=== PATIENT | male | born 1995 | race Caucasian/White ===

== ENCOUNTER → 2016-09-16 | Outpatient (CLI) | payer OTHER ==
--- NOTE | 2016-09-16 13:06 | DIAGNOSTIC IMAGING REPORT ---
THREE-PHASE BONE SCAN AND SPECT IMAGING OF THE LUMBAR SPINE CLINICAL HISTORY: LOW BACK PAIN COMPARISON STUDY: Conventional radiographic study dated 12/16/2015, MRI dated 04/19/2016 FINDINGS: The patient was injected with 25.6 mCi of technetium 99 M MDP. The flow sequence was normal. Blood pool imaging was normal.. Three-hour delayed planar images of the lumbar spine were acquired in multiple projections. Planar activity was felt to be normal. SPECT imaging in the axial coronal and sagittal planes is normal. IMPRESSION: Normal study. Electronically signed by: Robert Leung M.D. 09/16/2016 1:04 PM Dictated Date/Time: 09/16/2016 12:32 PM
== END | disposition home or self-care (01) ==
LOC: C.NUCL 08:13
PROVIDERS: ATTEND Physical Medicine & Rehabilitation
DX: M54.5 Low back pain (principal)

== ENCOUNTER → 2016-09-23 | Day surgery (SDC) | payer OTHER ==
[2016-09-22 09:07] VITALS: Ht 188 cm; Wt 79.5 kg
[~2016-09-23] VITALS: Ht 188 cm; Wt 79.5 kg
[~2016-09-23] MED LIST: IOPAMIDOL INJ 61% 15 ML VIAL ONE; LIDOCAINE HCL 1% MPF 5 ML VIAL ONE; SODIUM CHLORIDE 0.9% INJ 10 ML VIAL ONE
[2016-09-23 14:08] VITALS: TEMP 36.4
--- NOTE | 2016-09-23 14:48 | History & Physical Bridge - [place] ---
H&P Re-Evaluation Bridge Note: I have examined the patient, reviewed the History & Physical and in the interval since the performance of the History & Physical I have noted the following changes of clinical significance: No changes noted
[2016-09-23 15:14] VITALS: BP 122/72; PULSE 74; O2SAT 95
--- NOTE | 2016-09-23 15:20 | Discharge Instructions ---
Discharge Instructions Visit Reason for Visit: Low Back Pain Discharge Discharge Diagnosis / Problem: low back pain Discharge Goals Goal(s): Decrease discomfort, Improve function Activity Recommendations Activity Limitations: resume your previous activity Anesthesia . Post Anesthesia Instructions: If you have had General Anesthesia or IV Sedation: * Do not drive today. * Resume driving when surgeon permits. * Do not make important decisions or sign legal documents today. * Call surgeon for: 1. Temperature elevations greater than 101 degrees F. 2. Uncontrollable pain. 3. Excessive bleeding. 4. Persistent nausea and vomiting. 5. Medication intolerance (nausea, vomiting or rash). * For nausea and vomiting use only clear liquids such as: tea, soda, bouillon until nausea subsides, then gradually increase diet as tolerated. * If you have any concerns or questions, call your surgeon's office. If physician is unavailable and it is an emergency, call 911 or go to the nearest emergency room. . Diet Recommendations Recommended Home Diet: resume previous diet Procedures Procedures Performed: LUMBAR EPIDURAL STEROID INJECTION Pending Studies Studies pending at discharge: no Medical Emergencies . Who to Call and When: Medical Emergencies: If at any time you feel your situation is an emergency, please call 911 immediately. . Non-Emergent Contact Non-Emergency issues call your: Specialist . . "Provider Documentation" section prepared by Mark Ramirez.
--- NOTE | 2016-09-23 16:12 | OPERATIVE REPORT ---
DATE OF OPERATION: 09/23/2016 PREOPERATIVE DIAGNOSES: Low back pain, L5-S1 disc protrusion, annular tear with axial back pain. POSTOPERATIVE DIAGNOSES: Same. INDICATIONS FOR PROCEDURE: The patient is a 20-year-old white male who is a member of the [employer] who has had a 9-month plus history of low back pain that has not responded to conservative measures. MRI revealed an annular tear with a disc protrusion at L5-S1. He denies any significant radicular complaints. They are all axial low in nature. Bone scan was negative for stress fracture or facet arthritis. He presents today for a lumbar epidural steroid injection to see if this alleviates the axial back pain related to the annular tear that is present. PHYSICAL EXAMINATION: GENERAL: Pleasant male seated comfortably. MUSCULOSKELETAL: Lumbar paraspinal muscles were palpated and noted be nontender. He had some discomfort with flexion. No problems with extension. He has normal lower extremity strength. CONSENT: Verbal and written consent was obtained from the patient. Risks and benefits were reviewed. Risks include but are not limited to epidural abscess, epidural hematoma, allergic reaction, dural puncture. The patient wishes to proceed. DESCRIPTION OF PROCEDURE: The patient was taken back to the special procedures room of the [facility] where he was maintained in a prone position. Backside was cleansed with Betadine x3 and a dry sterile dressing was applied. Fluoroscope was used to identify the L5-S1 intralaminar space and overlying skin on the right side was anesthetized with 4 mL of lidocaine 1% 25-gauge 1.5-inch needle. A 22-gauge 3.5-inch Tuohy needle was then directed down towards the intralaminar space. It was advanced under lateral fluoroscopic guidance. Loss of resistance was noted at a depth of 5 cm. Isovue-300 contrast 1 mL was injected in which demonstrated epidural uptake pattern which was confirmed with both AP and lateral views. He then underwent injection after negative aspiration of 40 mg of Depo-Medrol and 4 mL of preservative free sodium chloride. Injection was well tolerated. DISPOSITION: 1. The patient is taken out into the discharge recovery area where he will be discharged home once discharge criteria have been met. 2. Follow up in the [facility] office in 2-4 weeks. I attest to the content of the Intraoperative Record and any orders documented therein. Any exceptio ns are noted below.
== END | disposition home or self-care (01) ==
LOC: X.SURG 13:55
PROVIDERS: ATTEND Physical Medicine & Rehabilitation
DX: M51.37 Other intervertebral disc degeneration, lumbosacral region (principal)

== ENCOUNTER → 2016-09-28 | Outpatient (CLI) | payer OTHER ==
[~2016-09-28] MED LIST changes: -IOPAMIDOL INJ 61% 15 ML VIAL ONE; -LIDOCAINE HCL 1% MPF 5 ML VIAL ONE; +OPTIRAY 320 IV PRN; -SODIUM CHLORIDE 0.9% INJ 10 ML VIAL ONE
--- NOTE | 2016-09-28 13:16 | DIAGNOSTIC IMAGING REPORT ---
CHEST CT WITH CONTRAST CT DOSE: 296.10 mGy.cm HISTORY: Pleural effusion R/O ORIGIN OF PLEURAL EFFUSION TECHNIQUE: Multiaxial CT images of the chest were performed following the intravenous administration of contrast. COMPARISON: None. FINDINGS: The lungs are clear. The mediastinal vascular structures are within normal limits. No mediastinal or hilar lymphadenopathy. No pleural effusion or pneumothorax. Limited views of the upper abdomen demonstrate a normal liver and spleen. IMPRESSION: No significant abnormality identified within the chest. Electronically signed by: Wm Zheng M.D. 09/28/2016 1:15 PM Dictated Date/Time: 09/28/2016 1:12 PM
== END | disposition home or self-care (01) ==
LOC: C.CTS 12:57
PROVIDERS: ATTEND Pediatrics
DX: R93.8 Abnormal findings on diagnostic imaging of other specified body structures (principal); J90 Pleural effusion, not elsewhere classified

== ENCOUNTER → 2016-10-05 | Outpatient (CLI) | payer OTHER ==
[2016-10-09 21:33] LABS: CYTOMEGALOVIRUS IGG AB 2.45; EPSTEIN BARR VIR CAPSID IGG 2.25 INDEX; PARVOVIRUS IgG INDEX 4.5 (<0.9); PARVOVIRUS IgM INDEX 0.1 (<0.9)
== END | disposition home or self-care (01) ==
LOC: C.LAB1850 14:49
PROVIDERS: ATTEND Internal Medicine Infectious Disease
DX: R59.1 Generalized enlarged lymph nodes (principal)

== ENCOUNTER → 2016-10-26 | Outpatient (CLI) | payer OTHER ==
--- NOTE | 2016-10-26 11:19 | DIAGNOSTIC IMAGING REPORT ---
Ultrasound right arm EXTREMITY NONVASCULAR LIMITED CLINICAL HISTORY: UPPER RT ARM MASS/LEFT FOREARM, ABD NORMAL LYMPH.. Mass TECHNIQUE: Real-time ultrasound COMPARISON STUDY: None FINDINGS: At the site of clinically palpable nodularity of the upper medial right arm, several isoechoic nodular densities are present. These is suggestive of potential lipomas. Largest measures up to 3 cm maximum dimension. 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 Electronically signed by: Wm Zheng M.D. 10/26/2016 11:18 AM Dictated Date/Time: 10/26/2016 11:17 AM
--- NOTE | 2016-10-26 11:21 | DIAGNOSTIC IMAGING REPORT ---
LEFT FOREARM ULTRASOUND CLINICAL HISTORY: Left forearm mass. COMPARISON STUDY: None FINDINGS: Within the distal medial forearm, there is an ovoid subcutaneous nodule, isoechoic to cutaneous tissue, measuring 10 x 2.6 x 10 mm. There is a second equivocal nodule isoechoic to subcutaneous fat measuring 13 x 4 x 15 mm. IMPRESSION: Low suspicion nonspecific subcutaneous nodules corresponding to the palpable abnormality. Clinical follow-up is recommended. Electronically signed by: Robert Leung M.D. 10/26/2016 11:20 AM Dictated Date/Time: 10/26/2016 11:17 AM
== END | disposition home or self-care (01) ==
LOC: C.ULTR 10:20
PROVIDERS: ATTEND Family Medicine
DX: R59.1 Generalized enlarged lymph nodes (principal); D17.21 Benign lipomatous neoplasm of skin and subcutaneous tissue of right arm